=== PATIENT | female | born 1945 | race Caucasian/White ===

== ENCOUNTER 2019-02-11 10:22 | Inpatient (IN) | payer OTHER ==
[~2019-02-11 10:22] MED LIST: AMIODARONE 150 MG INJ; CA CHLORIDE 10% 10 ML SYRINGE; DOPamine-D5W 1.6 MG/ML 250 ML; EPINEPHrine 0.1 MG/ML SYG; POTASSIUM CHLORIDE 20 MEQ/SW 100 ML IVPB
[2019-02-11] MEDS: NA BICARBONATE 8.4% 50 ML SYG IV ×2 (10:22→10:48)
[2019-02-11] MEDS: SODIUM CHLORIDE 0.9% 500 ML BAG IV* (10:22)
[2019-02-11] MEDS ORDERED: PROPOFOL 100 ML IV (10:30)
[2019-02-11] MEDS ORDERED: FENTAnyl (DRIP) 1000 mcg/100mL 100 ML IV (10:30)
[2019-02-11] MEDS ORDERED: NORepinephrine 8MG/250 ML (PMX 250 ML IV (10:31)
[2019-02-11] MEDS ORDERED: VECURONIUM 100 MG in DEXTROSE 5% 100 ML IV (10:50)
[2019-02-11] MEDS: AMIODARONE 150MG/D5W BOLUS 100 ML IV (10:50)
[2019-02-11] MEDS: DOPamine-D5W 1.6 MG/ML 250 ML IV (11:00)
[2019-02-11] MEDS: CEFEPIME 2GM/50 ML (PMX) 50 ML IVPB (11:00)
[2019-02-11] MEDS ORDERED: VECURONIUM 10 MG VIAL IV (11:00)
[2019-02-11] MEDS ORDERED: AMIODARONE 900 MG in DEXTROSE 5% 482 ML IV (11:00)
[2019-02-11] MEDS: SODIUM CHLORIDE 0.9% 1L BAG IV* (11:00)
[2019-02-11 11:01] LABS: ABNORMAL IP MESSAGE 1; HEMATOCRIT 30.8 % (37.0-47.0); HEMOGLOBIN 9.1 g/dl (12.0-16.0); MEAN CORPUSCULAR HEMOGLOBIN 29.3 pg (29.0-33.0); MEAN CORPUSCULAR HGB CONC 29.5 g/dl (32.0-37.0); MEAN PLATELET VOLUME 11.8 fl (7.4-10.4); NUCLEATED RED BLOOD CELLS% 0.3 /100WBC (0.0-0.0); PLATELET COUNT 125 10^3/UL (140-415); RED BLOOD COUNT 3.11 10^6/ul (4.20-5.40); RED CELL DISTRIBUTION WIDTH 14.1 % (11.5-14.5)
[2019-02-11 11:01] LABS: WHITE BLOOD COUNT 6.5 10^3/ul (4.8-10.8)
[2019-02-11 11:02] LABS: ADD MAN DIFF? YES; POSITIVE DIFF @See below
[2019-02-11 11:16] LABS: ADD UMIC NO; UR ASCORBIC ACID NEGATIVE (NEGATIVE); UR BILIRUBIN (Dip) NEGATIVE (NEGATIVE); UR BLOOD (Dip) NEGATIVE (NEGATIVE); UR CLARITY CLEAR (CLEAR); UR COLOR YELLOW (YELLOW); UR GLUCOSE (Dip) 3+ mg/dL (NEGATIVE); UR KETONES (Dip) 1+ mg/dL (NEGATIVE); UR LEUKOCYTE ESTERASE (Dip) NEGATIVE Leu/ul (NEGATIVE); UR NITRITE (Dip) NEGATIVE (NEGATIVE); UR TOTAL PROTEIN (Dip) NEGATIVE (NEGATIVE); UR UROBILINOGEN (Dip) NEGATIVE (NEGATIVE)
[2019-02-11 11:20] LABS: INR 1.41; PROTIME 17.4 Sec (11.9-14.9); PT RATIO 1.4
[2019-02-11 11:21] LABS: ANISOCYTOSIS 1+ (0-0); LYMPHOCYTES % (M) 47 % (15-51); METAMYELOCYTES %M 1 % (0-0); MICROCYTOSIS 1+ (0-0); MONOCYTE #M 0.1 10^3/ul (0.3-0.9); MONOCYTES % (M) 3 % (0-11); MYELOCYTES #M 0.5 10^3/ul (0.0-0.0); MYELOCYTES % (M) 9 % (0-0); PLATELET ESTIMATE DECREASED; SEGMENTED NEUTROPHILS (M) % 40 % (39-77); SMUDGE%M 11 % (0-0)
[2019-02-11 11:25] LABS: ALANINE AMINOTRANSFERASE 563 IU/L (13-69); ALBUMIN 3.3 g/dl (3.3-4.9); ALBUMIN/GLOBULIN RATIO 1.83; ALKALINE PHOSPHATASE 61 IU/L (42-121); ANION GAP 34 (5-13); ASPARTATE AMINO TRANSFERASE 662 IU/L (15-46); BILIRUBIN,INDIRECT 0.3 mg/dl (0-1.1); BILIRUBIN,TOTAL 0.3 mg/dl (0.2-1.3); BLOOD UREA NITROGEN 36 mg/dl (7-20); CALCIUM 10.4 mg/dl (8.4-10.2); CARBON DIOXIDE 10 mmol/L (21-31); CHLORIDE 88 mmol/L (97-110); CREATININE 2.33 mg/dl (0.44-1.00); LIPASE 703 U/L (23-300); MAGNESIUM 2.9 mg/dl (1.7-2.5); PARTIAL THROMBOPLASTIN TIME 76.1 Sec (23.0-35.0); SODIUM 132 mmol/L (135-144); TOTAL PROTEIN 5.1 g/dl (6.1-8.1)
[2019-02-11] MEDS: VANCOMYCIN 1 GM (PMX) 250 ML IVPB (11:27)
[2019-02-11] MEDS ORDERED: NS + KCL 30 MEQ 1,000 ML IV (11:31)
[2019-02-11] MEDS ORDERED: D10/0.45% NACL + KCL 30 MEQ 1,000 ML IV (11:31)
[2019-02-11] MEDS ORDERED: ALBUTEROL 0.5% (NEB) 2.5 MG/0.5 ML AMP INH (11:31)
[2019-02-11] MEDS ORDERED: NS + KCL 40 MEQ 1,000 ML IV (11:31)
[2019-02-11] MEDS ORDERED: DEXTROSE 10%/0.45% NACL 1,000 ML IV (11:31)
[2019-02-11] MEDS ORDERED: D10/0.45% NACL + KCL 40 MEQ 1,000 ML IV (11:31)
[2019-02-11 11:32] LABS: POTASSIUM 9.3 mmol/L (3.5-5.1)
[2019-02-11 11:35] LABS: AADO2 Arterial 268.6 mmHg (7.0-24.0); Arterial Base Excess -27.5 mmol/L (-3.0-3); Arterial Blood Gas Oxygen Sat 99.1 mmHG (95.0-100.0); Arterial COHb 0.3 % (0.0-3.0); Arterial Fraction of Oxyhgb 98.8 % (93.0-99.0); Arterial HCO3 5.2 mmol/L (22.0-26.0); Arterial MetHb 0 % (0.0-1.5); Arterial pCO2 31.6 mmhg (35-45); MODE VENT - AC; Site Right Brachial
[2019-02-11 11:36] LABS: GLUCOSE 1076 mg/dl (70-220); PHOSPHORUS 14.5 mg/dl (2.5-4.9)
[2019-02-11 11:40] LABS: TROPONIN-I 0.594 ng/ml (0.000-0.120)
[2019-02-11 11:45] LABS: ETHANOL < 10.0 mg/dl (0-0)
[2019-02-11] MEDS: NORepinephrine 8MG/250 ML (PMX 250 ML IV (11:55)
[2019-02-11 12:00] LABS: HEMOGLOBIN A1C 9.3 % (0-5.9)
[2019-02-11] MEDS ORDERED: DEXTROSE 50% 50 ML SYRINGE IV ×3 (12:00)
[2019-02-11] MEDS: AMIODARONE 900 MG in DEXTROSE 5% 482 ML IV (12:01)
[2019-02-11] MEDS: ASPIRIN 300 MG SUPP PR (12:17)
[2019-02-11] MEDS: INSULIN REGULAR, HUMAN 100 UNIT/1 ML 3ML VIAL IVP (12:18)
[2019-02-11] MEDS: SOD CHLORIDE 0.9% 1,000 ML IV (12:41)
[2019-02-11 12:47] LABS: AMPHETAMINE/METHAMPHETAMINE Negative (NEGATIVE); BARBITURATES Negative (NEGATIVE); BENZODIAZEPINES Negative (NEGATIVE); CANNABINOIDS Negative (NEGATIVE); COCAINE Negative (NEGATIVE); OPIATES Negative (NEGATIVE)
[2019-02-11] MEDS: INSULIN REGULAR, HUMAN 100 UNIT in SOD CHLORIDE 0.9% 100 ML IV (12:50)
[2019-02-11] MEDS: LACTATED RINGER'S 540 ML IV (13:01)
[2019-02-11 14:22] LABS: ANION GAP 29 (5-13); BLOOD UREA NITROGEN 35 mg/dl (7-20); CALCIUM 8.6 mg/dl (8.4-10.2); CHLORIDE 96 mmol/L (97-110); CREATININE 2.34 mg/dl (0.44-1.00); MAGNESIUM 2.7 mg/dl (1.7-2.5); SODIUM 132 mmol/L (135-144)
[2019-02-11 14:34] LABS: CARBON DIOXIDE 7 mmol/L (21-31); POTASSIUM 7.5 mmol/L (3.5-5.1)
[2019-02-11 14:35] LABS: GLUCOSE 982 mg/dl (70-220)
[2019-02-11] MEDS ORDERED: LORAZEPAM 2 MG INJ IV (15:00)
[2019-02-11] MEDS: HYDROmorphONE 2 MG/ML SYG IV (15:31)
[2019-02-11] MEDS: morphine (DRIP) 100 MG/100 ML 100 ML IV (15:41)
== END 2019-02-11 16:18 | disposition expired ==
LOC: E/R 10:22 → ICU 11:04
PROC: 5A1935Z Respiratory Ventilation, Less than 24 Consecutive Hours (ICD-10-PCS; principal; 2019-02-11)
PROC: 4A033R1 Measurement of Arterial Saturation, Peripheral, Percutaneous Approach (ICD-10-PCS; 2019-02-11)
DX: I21.A1 Myocardial infarction type 2 (principal); E11.10 Type 2 diabetes mellitus with ketoacidosis without coma; K72.00 Acute and subacute hepatic failure without coma; K85.90 Acute pancreatitis without necrosis or infection, unspecified; N17.9 Acute kidney failure, unspecified; G93.40 Encephalopathy, unspecified; G93.1 Anoxic brain damage, not elsewhere classified; I46.9 Cardiac arrest, cause unspecified; F03.90 Unspecified dementia, unspecified severity, without behavioral disturbance, psychotic disturbance, mood disturbance, and anxiety; E87.5 Hyperkalemia; I48.91 Unspecified atrial fibrillation; Z66 Do not resuscitate; Z90.710 Acquired absence of both cervix and uterus; Z79.4 Long term (current) use of insulin; Z88.2 Allergy status to sulfonamides
CPT/HCPCS: 36415; 36600; 71045; 76937; 80048; 80053; 80307; 81003; 82803; 82962; 83036; 83605; 83690; 83735; 84100; 84484; 85025; 85610; 85730; 86850; 86900; 86901; 87040-91; 87086; 93005; 94002; 96374; 96375; 99291-25